=== PATIENT | female | born 1990 | race Caucasian/White ===

== ENCOUNTER → 2016-10-04 | Outpatient (CLI) | payer BC ==
[~2016-10-04] MED LIST: CEFD300C PO
[2016-10-04 10:37] VITALS: BP 112/75
--- NOTE | 2016-10-04 10:37 | Urgent Care T Sheet Gen (E) ---
Intake General Temperature (Fahrenheit): 98.6 Pulse: 74 Blood Pressure Systolic: 112 Blood Pressure Diastolic: 75 Respirations: 22 SPO2: 98 Description of Symptoms Patient presents with illness for 11 days. Started as nasal congestion, PND with sore throat and cough. Head symptoms have lessened in severity however the chest congestion and cough has worsened with time. Fever early on in illness, nothing recently. Been taking supplements which she receives from a family dentist. Took some [place] cold last night. Respiratory Constitutional Symptoms: No Fever, Malaise EENTM: Nose Congestion Throat pain Respiratory: CoughNo Short of breath, No Wheezing Cardiovascular: No symptoms reported Gastrointestinal/Abdominal: No symptoms reported All Other Systems Reviewed Remaining Systems: All other systems reviewed with negative findings Physical Exam Physical Exam General Appearance: WD/WN No apparent distress Eyes, Ears, Nose, Throat Ex: TMs normal (air fluid bubbles) Pharyngeal erythema (cobblestone appearance with clear, thick drainage) Other (red, swollen nasal turbinates (R worse than L). thick purulent drainage) Neck Exam: SuppleNo Lymphadenopathy Respiratory Exam: Lungs clear Normal breath sounds Cardiovascular Exam: Regular rate, rhythm Departure Urgent Care Impression Impression: Primary Impression: Sinusitis Qualified Code: J01.00 - Acute maxillary sinusitis, unspecified Additional Impression: Cough Departure Disposition: HOME OR SELF-CARE Condition: Stable Referrals: Omid Cates (PCP) Additional Instructions: I have started the patient on Cefdinir for treatment. Rest. Fluids. I don't know what kind of supplements she takes so I can't comment on them. Would recommend stopping them while taking abx. Return as needed. Patient understands DC instructions. All questions were answered. Scripts Cefdinir 300 Mg [id number] Mg PO BID #14 CAP Prov:HENOK GOLDBERG 10/04/16 End of report . HENOK GOLDBERG Oct 04, 2016 10:36
== END ==
LOC: MHUC 10:13
PROVIDERS: ATTEND Physician Assistant
DX: J01.00 Acute maxillary sinusitis, unspecified (principal); R05 Cough
CPT/HCPCS: 99213